=== PATIENT | female | born 1995 | race Caucasian/White ===

== ENCOUNTER 2019-06-08 09:14 | Inpatient (IN) | payer OTHER ==
[2019-06-08] MEDS ORDERED: MISOPROSTOL 200 MCG TAB PR ×2 (09:30→13:00)
[2019-06-08] MEDS ORDERED: OXYTOCIN 30 UNITS/LR 500 ML IV ×4 (09:30→13:00)
[2019-06-08] MEDS ORDERED: CEFAZOLIN 2 GM/50 ML (PMX) 50 ML IVPB (09:30)
[2019-06-08] MEDS ORDERED: METHYLERGONOVINE 0.2 MG INJ IM ×2 (09:30→13:00)
[2019-06-08] MEDS ORDERED: CARBOPROST 250 MCG INJ IM ×2 (09:30→13:00)
[2019-06-08] MEDS: LACTATED RINGER'S 1,000 ML IV (10:18)
[2019-06-08 10:19] LABS: ADD MAN DIFF? NO
[2019-06-08 10:26] LABS: WHITE BLOOD COUNT 9.6 10^3/ul (4.8-10.8)
[2019-06-08 10:26] LABS: BASOPHILS % 0.2 % (0.0-2.0); EOSINOPHILS % 0.4 % (0.0-7.0); HEMATOCRIT 34.6 % (37.0-47.0); LYMPHOCYTES # 1.7 10^3/ul (0.8-2.9); LYMPHOCYTES % 18.1 % (15.0-51.0); MEAN CORPUSCULAR HEMOGLOBIN 27.6 pg (29.0-33.0); MEAN CORPUSCULAR HGB CONC 31.8 g/dl (32.0-37.0); MEAN CORPUSCULAR VOLUME 86.9 fl (82.0-101.0); MEAN PLATELET VOLUME 11.6 fl (7.4-10.4); MONOCYTE # 0.6 10^3/ul (0.3-0.9); MONOCYTES % 5.8 % (0.0-11.0); NEUTROPHIL # 7.2 10^3/ul (1.6-7.5); NEUTROPHILS % 74.6 % (39.0-77.0); PLATELET COUNT 322 10^3/UL (140-415); RED BLOOD COUNT 3.98 10^6/ul (4.20-5.40); RED CELL DISTRIBUTION WIDTH 13.5 % (11.5-14.5)
[2019-06-08 10:46] LABS: INR 0.86; PROTIME 11.8 Sec (11.9-14.9); PT RATIO 0.9
[2019-06-08] MEDS: CITRIC ACID/NA CITRATE 30 ML CUP PO (10:59)
[2019-06-08] MEDS ORDERED: morphine SULFATE/PF (10 MG/10 ML) INJ (11:24)
[2019-06-08] MEDS ORDERED: METOCLOPRAMIDE 10 MG INJ (11:24)
[2019-06-08] MEDS ORDERED: ONDANSETRON 4 MG INJ (11:24)
[2019-06-08] MEDS ORDERED: KETOROLAC 30 MG INJ (11:24)
[2019-06-08 11:26] LABS: HEPATITIS B SURFACE ANTIGEN NEGATIVE (NEGATIVE)
[2019-06-08] MEDS ORDERED: EPHEDrine 25 MG/5 ML SYG (11:34)
[2019-06-08] MEDS ORDERED: NACL 0.9% 3 ML SYG IV (13:00)
[2019-06-08] MEDS ORDERED: morphine 2 MG INJ IV ×6 (13:00)
[2019-06-08] MEDS ORDERED: KETOROLAC 30 MG INJ IV (13:00)
[2019-06-08] MEDS: CEFAZOLIN 2 GM/50 ML (PMX) 50 ML IVPB ×2 (13:00→21:15)
[2019-06-08] MEDS ORDERED: ONDANSETRON 4 MG INJ IV ×2 (13:00)
[2019-06-08] MEDS ORDERED: NALOXONE (0.4 MG/ML) INJ IV (13:00)
[2019-06-08] MEDS ORDERED: LANOLIN HPA 1 PKT TOP (13:00)
[2019-06-08] MEDS ORDERED: DIPHENHYDRAMINE 50 MG INJ IV ×2 (13:00)
[2019-06-08] MEDS: OXYTOCIN 30 UNITS/LR 500 ML IV (14:14)
[2019-06-08 20:02] LABS: RAPID PLASMA REAGIN NONREACTIVE (NR)
[2019-06-09] MEDS: LACTATED RINGER'S 1,000 ML IV (02:50)
[2019-06-09] MEDS: CEFAZOLIN 2 GM/50 ML (PMX) 50 ML IVPB ×2 (05:12→12:27)
[2019-06-09] MEDS: KETOROLAC 30 MG INJ IV (05:12)
[2019-06-09 08:34] LABS: ADD MAN DIFF? NO
[2019-06-09 08:41] LABS: WHITE BLOOD COUNT 10.4 10^3/ul (4.8-10.8)
[2019-06-09 08:41] LABS: BASOPHILS % 0.3 % (0.0-2.0); EOSINOPHILS % 0.4 % (0.0-7.0); HEMATOCRIT 30.6 % (37.0-47.0); HEMOGLOBIN 9.8 g/dl (12.0-16.0); LYMPHOCYTES # 1.8 10^3/ul (0.8-2.9); LYMPHOCYTES % 17.5 % (15.0-51.0); MEAN CORPUSCULAR HEMOGLOBIN 27.9 pg (29.0-33.0); MEAN CORPUSCULAR VOLUME 87.2 fl (82.0-101.0); MEAN PLATELET VOLUME 11.6 fl (7.4-10.4); MONOCYTE # 0.6 10^3/ul (0.3-0.9); MONOCYTES % 5.7 % (0.0-11.0); NEUTROPHIL # 7.8 10^3/ul (1.6-7.5); NEUTROPHILS % 75.6 % (39.0-77.0); PLATELET COUNT 279 10^3/UL (140-415); RED BLOOD COUNT 3.51 10^6/ul (4.20-5.40); RED CELL DISTRIBUTION WIDTH 13.6 % (11.5-14.5)
[2019-06-09] MEDS: IBUPROFEN 800 MG TAB PO ×2 (12:27→21:45)
[2019-06-09] MEDS ORDERED: OXYCODONE/ACETAMINOPHEN (5/325) TAB PO (13:00)
[2019-06-09] MEDS: FERROUS SULFATE (EC) 325 MG TAB PO (20:54)
[2019-06-10] MEDS: IBUPROFEN 800 MG TAB PO ×3 (05:25→21:53)
[2019-06-10] MEDS: FERROUS SULFATE (EC) 325 MG TAB PO ×2 (08:55→21:53)
[2019-06-10] MEDS: OXYCODONE/ACETAMINOPHEN (5/325) TAB PO (12:13)
[2019-06-11] MEDS: IBUPROFEN 800 MG TAB PO ×2 (05:33→14:45)
[2019-06-11] MEDS: FERROUS SULFATE (EC) 325 MG TAB PO (10:02)
[2019-06-11] MEDS: DIPHTH/TET/ACEL PERTUSS (ADULT) 0.5 ML VIAL IM* (14:47)
== END 2019-06-11 16:26 | disposition home or self-care (01) | DRG 788 ==
LOC: L-D 09:14 → MS1 06-10 10:10 → L-D 11:16 → PP1 15:00
PROVIDERS: Obstetrics & Gynecology
PROC: 10D00Z1 Extraction of Products of Conception, Low, Open Approach (ICD-10-PCS; principal; 2019-06-08 12:30)
DX: O34.211 Maternal care for low transverse scar from previous cesarean delivery (principal); O99.214 Obesity complicating childbirth; E66.9 Obesity, unspecified; G89.18 Other acute postprocedural pain; Z3A.39 39 weeks gestation of pregnancy; Z37.0 Single live birth; Z23 Encounter for immunization
CPT/HCPCS: 85025; 85610; 85730; 86592; 86850; 86900; 86901; 87340; 90715; 99464